=== PATIENT | male | born 1955 | race American Indian/Alaskan Native ===

== ENCOUNTER 2020-07-10 21:29 | Observation (INO) | payer OTHER ==
[2020-07-10 22:17] LABS: Hematocrit 23.1 % (35.5-45.6); Hemoglobin 7.1 gm/dl (11.8-15.2); Mean Corpuscular HGB Conc 31 % (32-34); Mean Corpuscular Volume 91 fl (84-94); Red Blood Count 2.54 M/mm3 (3.65-5.03)
[2020-07-10 22:21] LABS: Platelet Count 41 K/mm3 (140-440); Red Cell Distribution Width 21.8 % (13.2-15.2)
[2020-07-10 22:35] LABS: Alanine Aminotransferase 14 units/L (7-56); Albumin 3.8 g/dL (3.9-5); BUN/Creatinine Ratio 14; Blood Urea Nitrogen 11 mg/dL (9-20); Calcium 8.7 mg/dL (8.4-10.2); Hemolysis Index 3
[2020-07-10 23:18] LABS: Anisocytosis 1+; Band Neutrophils # (Manual) 1.2 K/mm3; Large Platelets Rare; Myelocytes # (Manual) 0.4 K/mm3; Total Cells Counted 100
[2020-07-10 23:19] LABS: Tear Drop Cells Rare
[2020-07-10 23:20] LABS: Ovalocytes Rare
[2020-07-10 23:21] LABS: Platelet Estimate Consistent w Auto
--- NOTE | 2020-07-11 01:34 | Emergency Department Report ---
ED General Adult HPI - General Chief complaint: Recheck/Abnormal Lab/Rx Stated complaint: ABNORMAL LABS Time Seen by Provider: 07/11/20 00:49 Source: patient Mode of arrival: Ambulatory Limitations: No Limitations - History of Present Illness Initial comments: Patient is a 64-year-old F [place]ian male with past medical history hypertension CVA and diet-controlled diabetes who is presenting with abnormal labs from his primary care provider. Patient's had several month decline in his mental health status. May 2020 the patient had a CVA with some residual dysarthria. Patient started on aspirin therapy at that time. Patient was not placed on b lood thinners however in early June 2020 the patient was noted to have a low hemoglobin. Patient had to have a blood transfusion. Must been some abnormality but the patient's laboratory studies at that time since that hematology consult was placed however the patient left AMA before given being g iven a diagnosis. Patient had a follow-up with his primary care physician Dr. CRISTIN luna several days ago and was called to come to the emergency department today. Patient has a hemoglobin of 7.1. He denies chest pain or shortness of breath but his states that he has been very weak and fatigued at home and had a syncopal episode 2 days ago and was unresponsive briefly. By time paramedics arrived patient was alert and oriented and refused transport to the hospital. Patient denies any dark tarry stools and states that his Hemoccult was checked several days ago and was negative. - Related Data Allergies Allergy/AdvReac Type Severity Reaction Status Date / Time No Known Allergies Allergy Unverified 07/10/20 21:33 ED Review of Systems ROS: Stated complaint: ABNORMAL LABS Other details as noted in HPI Comment: All other systems reviewed and negative ED Past Medical Hx - Past Medical History Previous Medical History?: Yes Hx CVA: Yes Additional medical history: BLOOD CLOT - Surgical History Past Surgical History?: Yes Additional Surgical History: BACK SURGERY 1997 - Social History Smoking Status: Never Smoker Substance Use Type: None ED Physical Exam - General Limitations: No Limitations General appearance: alert, in no apparent distress, other (Pale) - Head Head exam: Present: atraumatic, normocephalic - Eye Eye exam: Present: normal appearance - ENT ENT exam: Present: mucous membranes moist - Neck Neck exam: Present: normal inspection - Respiratory Respiratory exam: Present: normal lung sounds bilaterally. Absent: respiratory distress, wheezes, rales, rhonchi - Cardiovascular Cardiovascular Exam: Present: regular rate, normal rhythm, normal heart sounds. Absent: systolic murmur, diastolic murmur, rubs, gallop - GI/Abdominal GI/Abdominal exam: Present: soft, normal bowel sounds. Absent: distended, tenderness, guarding, rebound - Rectal Rectal exam: Present: heme (-) stool - Extremities Exam Extremities exam: Present: normal inspection - Back Exam Back exam: Present: normal inspection - Neurological Exam Neurological exam: Present: alert, oriented X3 - Psychiatric Psychiatric exam: Present: normal affect, normal mood - Skin Skin exam: Present: warm, dry, intact, normal color. Absent: rash ED Course Vital Signs 07/10/20 21:37 Temperature 98.1 F Pulse Rate 98 H Respiratory 16 Rate Blood Pressure 148/65 O2 Sat by Pulse 98 Oximetry ED Medical Decision Making - Lab Data Result diagrams: 07/10/20 21:55 07/10/20 21:55 Lab Results 07/10/20 07/10/20 07/10/20 Range/Units 21:55 21:55 21:55 WBC 13.1 H (4.5-11.0) K/mm3 RBC 2.54 L (3.65-5.03) M/mm3 Hgb 7.1 L (11.8-15.2) gm/dl Hct 23.1 L (35.5-45.6) % MCV 91 (84-94) fl MCH 28 (28-32) pg MCHC 31 L (32-34) % RDW 21.8 H (13.2-15.2) % Plt Count 41 L (140-440) K/mm3 Add Manual Diff Complete Total Counted 100 Seg Neuts % (Manual) 20.0 L (40.0-70.0) % Band Neutrophils % 9.0 % Lymphocytes % (Manual) 39.0 H (13.4-35.0) % Monocytes % (Manual) 2.0 (0.0-7.3) % Metamyelocytes % 20.0 % Myelocytes % 3.0 % Blast Cells % 7.0 % Nucleated RBC % 6.0 H (0.0-0.9) % Seg Neutrophils # Man 2.6 (1.8-7.7) K/mm3 Band Neutrophils # 1.2 K/mm3 Lymphocytes # (Manual) 5.1 (1.2-5.4) K/mm3 Abs React Lymphs (Man) 0.0 K/mm3 Monocytes # (Manual) 0.3 (0.0-0.8) K/mm3 Eosinophils # (Manual) 0.0 (0.0-0.4) K/mm3 Basophils # (Manual) 0.0 (0.0-0.1) K/mm3 Metamyelocytes # 2.6 K/mm3 Myelocytes # 0.4 K/mm3 Promyelocytes # 0.0 K/mm3 Blast Cells # 0.7 K/mm3 WBC Morphology Not Reportable Hypersegmented Neuts Not Reportable Hyposegmented Neuts Not Reportable Hypogranular Neuts Not Reportable Smudge Cells Not Reportable Toxic Granulation Not Reportable Toxic Vacuolation Not Reportable Dohle Bodies Not Reportable Pelger-Huet Anomaly Not Reportable [place] Rods Not Reportable Platelet Estimate Consistent w auto Clumped Platelets Not Reportable Plt Clumps, EDTA Not Reportable Large Platelets Rare Giant Platelets Not Reportable Platelet Satelliting Not Reportable Plt Morphology Comment Not Reportable RBC Morphology Not Reportable Dimorphic RBCs Not Reportable Polychromasia Not Reportable Hypochromasia Not Reportable Poikilocytosis Not Reportable Anisocytosis 1+ Microcytosis Not Reportable Macrocytosis Not Reportable Spherocytes Not Reportable Pappenheimer Bodies Not Reportable Sickle Cells Not Reportable Target Cells Not Reportable Tear Drop Cells Rare Ovalocytes Rare Helmet Cells Not Reportable [place] Bodies Not Reportable [place] Rings Not Reportable [place] Cells Not Reportable Bite Cells Not Reportable Crenated Cell Not Reportable Elliptocytes Not Reportable Acanthocytes (Spur) Not Reportable Rouleaux Not Reportable Hemoglobin C Crystals Not Reportable Schistocytes Not Reportable Malaria parasites Not Reportable Brice Bodies Not Reportable Hem Pathologist Commnt Sent to pathology Sodium 137 (137-145) mmol/L Potassium 3.7 (3.6-5.0) mmol/L Chloride 102.1 (98-107) mmol/L Carbon Dioxide 25 (22-30) mmol/L Anion Gap 14 mmol/L BUN 11 (9-20) mg/dL Creatinine 0.8 (0.8-1.3) mg/dL Estimated GFR > 60 ml/min BUN/Creatinine Ratio 14 % Glucose 98 (75-100) mg/dL Calcium 8.7 (8.4-10.2) mg/dL Total Bilirubin 0.70 (0.1-1.2) mg/dL AST 25 (5-40) units/L ALT 14 (7-56) units/L Alkaline Phosphatase 103 (35-129) units/L Total Protein 7.5 (6.3-8.2) g/dL Albumin 3.8 L (3.9-5) g/dL Albumin/Globulin Ratio 1.0 % Blood Type B POSITIVE Antibody Screen Negative - Medical Decision Making Patient noted to have hemoglobin 7.1 and will receive 1 unit of packed red blood cells since the patient has a history of diabetes hypertension and was symptomatic. Patient also has a platelet count of 41 this will continue to be monitored. Patient will be admitted to the hospitalist service. We do have a cargo service agent who can see the patient via telemedicine Dr. Sanders. Critical Care Time: Yes (30) Critical care attestation.: If time is entered above; I have spent that time in minutes in the direct care of this critically ill patient, excluding procedure time. ED Disposition Clinical Impression: Symptomatic anemia, Thrombocytopenia, Syncope Disposition: OP ADMIT IP TO THIS HOSP Is pt being admited?: Yes Does the pt Need Aspirin: No Condition: Stable Instructions: Syncope (ED) Referrals: DR AALIYAH [Other] - 3-5 Days Time of Disposition: 01:35
[2020-07-11] MEDS ORDERED: SODIUM CHLORIDE 0.9% 500 ML 500 ML IV ONE (01:35)
--- NOTE | 2020-07-11 02:40 | History and Physical Report ---
History of Present Illness Date of examination: 07/11/20 Date of admission: 07/11/20 01:35 Chief complaint: Chief complaint syncopal attack, other complaint include low hemoglobin and platelet counts History of present illness: History of presenting illness, patient is a 54-year-old male who was noted to have abnormal hemoglobin level sometime this month of June 2020 and had blood transfusion. Patient had hematology consult but never stayed to complete the consult and left the hospital where he was transfused AGAINST MEDICAL ADVICE. Patient had a syncopal episode about 2 days ago and was seen by the primary care doctor who advised patient to come to the hospital there was no history of chest pain, fever, dizziness, shortness of breath prior to the syncopal attack. Patient was evaluated in this emergency room and found to have low hemoglobin of 7.1 and low platelet count of 41,000. Past History Past Medical History: diabetes, hypertension, stroke, other (GOUT, BLOOD CLOT) Past Surgical History: Other (BACK SURGERY) Social history: no significant social history Family history: no significant family history Medications and Allergies Allergies Allergy/AdvReac Type Severity Reaction Status Date / Time No Known Allergies Allergy Verified 07/11/20 01:41 Active Meds: Active Medications Sodium Chloride (Nacl 0.9% 500 Ml) 500 mls @ 0 mls/hr IV ONCE ONE Stop: 07/11/20 01:36 Review of Systems Constitutional: no weight gain, no fever, no chills, no sweats, no night sweats, no fatigue, no weakness, no malaise, no lethargy Eyes: bilateral: other (NO BILATERAL EYE SYMPTOMS) Ears, nose, mouth and throat: no ear pain Cardiovascular: no chest pain, no palpitations, no syncope, no lightheadedness, no shortness of breath Respiratory: no cough, no hemoptysis, no shortness of breath, no dyspnea on exertion, no congestion, no wheezing Gastrointestinal: no nausea, no vomiting, no diarrhea, no constipation, no hematemesis, no coffee ground emesis, no melena, no hematochezia, no loss of appetite, no early satiety, no heartburn, no indigestion, no belching, no dyspepsia/bloating Genitourinary Male: no dysuria, no hematuria, no flank pain Rectal: no pain Musculoskeletal: no neck stiffness, no neck pain, no low back pain, no shooting leg pain, no myalgias Integumentary: no rash, no redness Neurological: syncope, no paralysis, no weakness, no parathesias, no numbness, no tingling, no seizures, no tremors, no ataxia, no vertigo, no headaches, no migraines, no convulsions, no change in mentation, no confusion Psychiatric: no anxiety, no depression Endocrine: no polydipsia, no polyuria, no nocturia, no excessive sweating Hematologic/Lymphatic: no easy bruising, no easy bleeding, no lymphedema Allergic/Immunologic: no urticaria, no persistent infections, no gluten intolerance Exam - Constitutional Vitals: Temp Pulse Resp BP Pulse Ox 98.1 F 98 H 16 148/65 98 07/10/20 21:37 07/10/20 21:37 07/10/20 21:37 07/10/20 21:37 07/10/20 21:37 General appearance: Present: no acute distress - EENT Eyes: Present: PERRL, EOM intact ENT: hearing intact, clear oral mucosa - Neck Neck: Present: supple, normal ROM - Respiratory Respiratory effort: normal - Cardiovascular Rhythm: regular Heart Sounds: Present: S1 & S2. Absent: gallop, systolic murmur, diastolic murmur, click - Extremities Extremities: no ischemia, No edema - Abdominal General gastrointestinal: Present: soft, non-tender, non-distended, normal bowel sounds. Absent: tender, distended, rigid Male genitourinary: Present: deferred - Rectal Rectal Exam: deferred - Integumentary Integumentary: Present: clear, warm, dry. Absent: erythema, jaundice - Musculoskeletal Musculoskeletal: generalized weakness - Psychiatric Psychiatric: appropriate mood/affect HEART Score - HEART Score Risk factors: 1-2 risk factors Troponin: < normal limit - Critical Actions Critical Actions: 0-3 pts:0.9-1.7%risk of adverse cardiac event.Candidate for discharge Results - Labs CBC & Chem 7: 07/10/20 21:55 07/10/20 21:55 Labs: Laboratory Last Values WBC 13.1 K/mm3 (4.5-11.0) H 07/10/20 21:55 RBC 2.54 M/mm3 (3.65-5.03) L 07/10/20 21:55 Hgb 7.1 gm/dl (11.8-15.2) L 07/10/20 21:55 Hct 23.1 % (35.5-45.6) L 07/10/20 21:55 MCV 91 fl (84-94) 07/10/20 21:55 MCH 28 pg (28-32) 07/10/20 21:55 MCHC 31 % (32-34) L 07/10/20 21:55 RDW 21.8 % (13.2-15.2) H 07/10/20 21:55 Plt Count 41 K/mm3 (140-440) L 07/10/20 21:55 Add Manual Diff Complete 07/10/20 21:55 Total Counted 100 07/10/20 21:55 Seg Neuts % (Manual) 20.0 % (40.0-70.0) L 07/10/20 21:55 Band Neutrophils % 9.0 % 07/10/20 21:55 Lymphocytes % (Manual) 39.0 % (13.4-35.0) H 07/10/20 21:55 Monocytes % (Manual) 2.0 % (0.0-7.3) 07/10/20 21:55 Metamyelocytes % 20.0 % 07/10/20 21:55 Myelocytes % 3.0 % 07/10/20 21:55 Blast Cells % 7.0 % 07/10/20 21:55 Nucleated RBC % 6.0 % (0.0-0.9) H 07/10/20 21:55 Seg Neutrophils # Man 2.6 K/mm3 (1.8-7.7) 07/10/20 21:55 Band Neutrophils # 1.2 K/mm3 07/10/20 21:55 Lymphocytes # (Manual) 5.1 K/mm3 (1.2-5.4) 07/10/20 21:55 Abs React Lymphs (Man) 0.0 K/mm3 07/10/20 21:55 Monocytes # (Manual) 0.3 K/mm3 (0.0-0.8) 07/10/20 21:55 Eosinophils # (Manual) 0.0 K/mm3 (0.0-0.4) 07/10/20 21:55 Basophils # (Manual) 0.0 K/mm3 (0.0-0.1) 07/10/20 21:55 Metamyelocytes # 2.6 K/mm3 07/10/20 21:55 Myelocytes # 0.4 K/mm3 07/10/20 21:55 Promyelocytes # 0.0 K/mm3 07/10/20 21:55 Blast Cells # 0.7 K/mm3 07/10/20 21:55 WBC Morphology Not Reportable 07/10/20 21:55 Hypersegmented Neuts Not Reportable 07/10/20 21:55 Hyposegmented Neuts Not Reportable 07/10/20 21:55 Hypogranular Neuts Not Reportable 07/10/20 21:55 Smudge Cells Not Reportable 07/10/20 21:55 Toxic Granulation Not Reportable 07/10/20 21:55 Toxic Vacuolation Not Reportable 07/10/20 21:55 Dohle Bodies Not Reportable 07/10/20 21:55 Pelger-Huet Anomaly Not Reportable 07/10/20 21:55 Clayton Rods Not Reportable 07/10/20 21:55 Platelet Estimate Consistent w auto 07/10/20 21:55 Clumped Platelets Not Reportable 07/10/20 21:55 Plt Clumps, EDTA Not Reportable 07/10/20 21:55 Large Platelets Rare 07/10/20 21:55 Giant Platelets Not Reportable 07/10/20 21:55 Platelet Satelliting Not Reportable 07/10/20 21:55 Plt Morphology Comment Not Reportable 07/10/20 21:55 RBC Morphology Not Reportable 07/10/20 21:55 Dimorphic RBCs Not Reportable 07/10/20 21:55 Polychromasia Not Reportable 07/10/20 21:55 Hypochromasia Not Reportable 07/10/20 21:55 Poikilocytosis Not Reportable 07/10/20 21:55 Anisocytosis 1+ 07/10/20 21:55 Microcytosis Not Reportable 07/10/20 21:55 Macrocytosis Not Reportable 07/10/20 21:55 Spherocytes Not Reportable 07/10/20 21:55 Pappenheimer Bodies Not Reportable 07/10/20 21:55 Sickle Cells Not Reportable 07/10/20 21:55 Target Cells Not Reportable 07/10/20 21:55 Tear Drop Cells Rare 07/10/20 21:55 Ovalocytes Rare 07/10/20 21:55 Helmet Cells Not Reportable 07/10/20 21:55 Holliday-[place] Bodies Not Reportable 07/10/20 21:55 [place] Rings Not Reportable 07/10/20 21:55 Yeyo Cells Not Reportable 07/10/20 21:55 Bite Cells Not Reportable 07/10/20 21:55 Crenated Cell Not Reportable 07/10/20 21:55 Elliptocytes Not Reportable 07/10/20 21:55 Acanthocytes (Spur) Not Reportable 07/10/20 21:55 Rouleaux Not Reportable 07/10/20 21:55 Hemoglobin C Crystals Not Reportable 07/10/20 21:55 Schistocytes Not Reportable 07/10/20 21:55 Malaria parasites Not Reportable 07/10/20 21:55 Brice Bodies Not Reportable 07/10/20 21:55 Hem Pathologist Commnt Sent to pathology 07/10/20 21:55 Sodium 137 mmol/L (137-145) 07/10/20 21:55 Potassium 3.7 mmol/L (3.6-5.0) 07/10/20 21:55 Chloride 102.1 mmol/L (98-107) 07/10/20 21:55 Carbon Dioxide 25 mmol/L (22-30) 07/10/20 21:55 Anion Gap 14 mmol/L 07/10/20 21:55 BUN 11 mg/dL (9-20) 07/10/20 21:55 Creatinine 0.8 mg/dL (0.8-1.3) 07/10/20 21:55 Estimated GFR > 60 ml/min 07/10/20 21:55 BUN/Creatinine Ratio 14 % 07/10/20 21:55 Glucose 98 mg/dL (75-100) 07/10/20 21:55 Calcium 8.7 mg/dL (8.4-10.2) 07/10/20 21:55 Total Bilirubin 0.70 mg/dL (0.1-1.2) 07/10/20 21:55 AST 25 units/L (5-40) 07/10/20 21:55 ALT 14 units/L (7-56) 07/10/20 21:55 Alkaline Phosphatase 103 units/L (35-129) 07/10/20 21:55 Total Protein 7.5 g/dL (6.3-8.2) 07/10/20 21:55 Albumin 3.8 g/dL (3.9-5) L 07/10/20 21:55 Albumin/Globulin Ratio 1.0 % 07/10/20 21:55 Blood Type B POSITIVE 07/10/20 21:55 Antibody Screen Negative 07/10/20 21:55 Crossmatch See Detail 07/10/20 21:55 Assessment and Plan - Patient Problems (1) Anemia Current Visit: Yes Status: Acute Plan to address problem: 1. SERIAL HEMOGLOBIN AND HEMATOCRIT 2. HEMATOLOGY CONSULT 3. POST TRANSFUSION HEMOGLOBIN ANALYSIS 4. HEMAOCCULT STOOL TESTING (2) Syncope Current Visit: Yes Status: Acute Plan to address problem: 1. SERIAL CARDIAC ENZYMES 2. 2 D ECHOCARDIOGRAM 3. BILATERAL CAROTID DOPPLER ULTRASOUND (3) Thrombocytopenia Current Visit: Yes Status: Acute Plan to address problem: 1. HEMATOLOGY CONSULT
[2020-07-11] MEDS ORDERED: SODIUM CHLORIDE 0.9% 250ML 250 ML ONE (04:03)
--- NOTE | 2020-07-11 10:56 | Hem/Onc Consultation ---
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3) 07/10/20 21:55 Metamyelocytes % 20.0 % 07/10/20 21:55 Myelocytes % 3.0 % 07/10/20 21:55 Blast Cells % 7.0 % 07/10/20 21:55 Creatinine 0.8 mg/dL (0.8-1.3) 07/10/20 21:55 Crossmatch See Detail 07/10/20 21:55 Past History Past Medical History: diabetes, hypertension, stroke, other (GOUT, BLOOD CLOT) Past Surgical History: Other (BACK SURGERY) Social history: no significant social history Family history: no significant family history Medications and Allergies Allergies Allergy/AdvReac Type Severity Reaction Status Date / Time No Known Allergies Allergy Verified 07/11/20 01:41 Active Meds: Active Medications Sodium Chloride (Nacl 0.9% 500 Ml) 500 mls @ 0 mls/hr IV ONCE ONE Stop: 07/11/20 01:36 Exam - Constitutional Vitals: Last Vital Signs Temp 97.6 F 07/11/20 06:58 Pulse 90 07/11/20 06:58 Resp 18 07/11/20 06:58 BP 147/86 07/11/20 06:58 Pulse Ox 98 07/11/20 06:58 Results - Labs lab Results: Laboratory Results - last 24 hr 07/10/20 07/10/20 07/10/20 21:55 21:55 21:55 WBC 13.1 H RBC 2.54 L Hgb 7.1 L Hct 23.1 L MCV 91 MCH 28 MCHC 31 L RDW 21.8 H Plt Count 41 L Add Manual Diff Complete Total Counted 100 Seg Neuts % (Manual) 20.0 L Band Neutrophils % 9.0 Lymphocytes % (Manual) 39.0 H Monocytes % (Manual) 2.0 Metamyelocytes % 20.0 Myelocytes % 3.0 Blast Cells % 7.0 Nucleated RBC % 6.0 H Seg Neutrophils # Man 2.6 Band Neutrophils # 1.2 Lymphocytes # (Manual) 5.1 Abs React Lymphs (Man) 0.0 Monocytes # (Manual) 0.3 Eosinophils # (Manual) 0.0 Basophils # (Manual) 0.0 Metamyelocytes # 2.6 Myelocytes # 0.4 Promyelocytes # 0.0 Blast Cells # 0.7 WBC Morphology Not Reportable Hypersegmented Neuts Not Reportable Hyposegmented Neuts Not Reportable Hypogranular Neuts Not Reportable Smudge Cells Not Reportable Toxic Granulation Not Reportable Toxic Vacuolation Not Reportable Dohle Bodies Not Reportable Pelger-Huet Anomaly Not Reportable [place] Rods Not Reportable Platelet Estimate Consistent w auto Clumped Platelets Not Reportable Plt Clumps, EDTA Not Reportable Large Platelets Rare Giant Platelets Not Reportable Platelet Satelliting Not Reportable Plt Morphology Comment Not Reportable RBC Morphology Not Reportable Dimorphic RBCs Not Reportable Polychromasia Not Reportable Hypochromasia Not Reportable Poikilocytosis Not Reportable Anisocytosis 1+ Microcytosis Not Reportable Macrocytosis Not Reportable Spherocytes Not Reportable Pappenheimer Bodies Not Reportable Sickle Cells Not Reportable Target Cells Not Reportable Tear Drop Cells Rare Ovalocytes Rare Helmet Cells Not Reportable Holliday[place] Bodies Not Reportable [place] Rings Not Reportable Yeyo Cells Not Reportable Bite Cells Not Reportable Crenated Cell Not Reportable Elliptocytes Not Reportable Acanthocytes (Spur) Not Reportable Rouleaux Not Reportable Hemoglobin C Crystals Not Reportable Schistocytes Not Reportable Malaria parasites Not Reportable Brice Bodies Not Reportable Hem Pathologist Commnt Sent to pathology Sodium 137 Potassium 3.7 Chloride 102.1 Carbon Dioxide 25 Anion Gap 14 BUN 11 Creatinine 0.8 Estimated GFR > 60 BUN/Creatinine Ratio 14 Glucose 98 Calcium 8.7 Total Bilirubin 0.70 AST 25 ALT 14 Alkaline Phosphatase 103 Total Protein 7.5 Albumin 3.8 L Albumin/Globulin Ratio 1.0 Blood Type B POSITIVE Antibody Screen Negative Crossmatch See Detail
--- NOTE | 2020-07-11 10:58 | Event Note ---
Date: 07/11/20 Patient seen and examined H&P reviewed Lab results reviewed Patient states that he wants to go home now that he got his blood transfusion I had a long discussion with the patient to wait until hematology evaluation Consult placed with mission planner Dr. Sanders Patient otherwise offers no specific complaints Monitor H&H
[2020-07-11 11:36] LABS: Creatine Kinase MB 2.5 ng/mL (0.0-4.0)
[2020-07-11 11:55] LABS: Hematocrit 24.9 % (35.5-45.6); Mean Corpuscular HGB Conc 32 % (32-34); Mean Corpuscular Volume 89 fl (84-94); Red Blood Count 2.81 M/mm3 (3.65-5.03); Red Cell Distribution Width 19.6 % (13.2-15.2)
[2020-07-11 12:05] LABS: Platelet Count 32 K/mm3 (140-440)
[2020-07-11 13:38] LABS: Total Cells Counted 100
[2020-07-11 13:40] LABS: Platelet Estimate Consistent w Auto; Target Cells 1+
[2020-07-11 13:41] LABS: Ovalocytes Few
[2020-07-11] MEDS ORDERED: ALUM-MAG HYDROXIDE-SIMETHICONE 200-200-20MG/5ML ORAL LIQD 30 ML PO PRN (17:40)
[2020-07-11 19:21] LABS: Hematocrit 26.5 % (35.5-45.6); Hemoglobin 8.5 gm/dl (11.8-15.2)
[2020-07-11] MEDS: FAMOTIDINE 20 MG TAB PO SCH (23:54)
[2020-07-12 06:31] LABS: INR 1.14 (0.87-1.13); Partial Thromboplastin Time 28.2 Sec. (24.2-36.6)
[2020-07-12 06:32] LABS: Hematocrit 27.4 % (35.5-45.6); Hemoglobin 8.7 gm/dl (11.8-15.2); Mean Corpuscular HGB Conc 32 % (32-34); Mean Corpuscular Volume 89 fl (84-94); Red Blood Count 3.09 M/mm3 (3.65-5.03)
[2020-07-12 06:34] LABS: Red Cell Distribution Width 20.2 % (13.2-15.2)
[2020-07-12 09:13] LABS: Total Cells Counted 100
[2020-07-12 09:14] LABS: Anisocytosis 1+
[2020-07-12 09:19] LABS: Platelet Estimate Consistent w Auto; Schistocytes Rare; Tear Drop Cells Rare
--- NOTE | 2020-07-12 10:18 | Hem/Onc Progress Note ---
Subjective Interval history: heme onc data review 64yo AA man with h/o stroke per notes now eval for confusion, abn labn testing, persistent anemia anticoag recently stopped because of anemia-->needed RBC transfusion (details unavailable) now persistent anemia and low plt count DATA REVIEWED BELOW LDH 521 IMP: heme malignancy suspected, possibly acute leukemia or lymphoma PLAN/REC: try for C/A/P CT he needs a bone marrow biopsy and intervention if he is not willing to stay then he will need outpt heme/onc f/u sidney Active Medications Al Hydrox/Mg Hydrox/Simethicone (Alum-Mag Hydroxide-Simethicone 892-019-51jy/5ml Oral Liqd 30 Ml) 15 ml PO Q4H PRN PRN Reason: Indigestion Last Admin: 07/11/20 18:17 Dose: 15 ml Documented by: Amlodipine Besylate (Amlodipine 5 Mg Tab) 5 mg PO QDAY CORDELIA Famotidine (Famotidine 20 Mg Tab) 20 mg PO BID CORDELIA Last Admin: 07/11/20 23:54 Dose: 20 mg Documented by: Vital Signs Temp Pulse Resp BP Pulse Ox 98.0 F 89 20 161/86 99 07/12/20 04:14 07/12/20 04:14 07/12/20 04:14 07/12/20 04:14 07/12/20 04:14 Temperature -Last 24 Hours Temperature 98.0 F Temperature 98.0 F Temperature 98.3 F Temperature 98.2 F Laboratory Last Values WBC 13.4 K/mm3 (4.5-11.0) H 07/12/20 05:36 Hgb 8.7 gm/dl (11.8-15.2) L 07/12/20 05:36 Hct 27.4 % (35.5-45.6) L 07/12/20 05:36 Plt Count 32 K/mm3 (140-440) L 07/11/20 11:00 Seg Neuts % (Manual) 45.0 % (40.0-70.0) 07/12/20 05:36 Band Neutrophils % 9.0 % 07/10/20 21:55 Lymphocytes % (Manual) 52.0 % (13.4-35.0) H 07/12/20 05:36 Reactive Lymphs % (Man) 3.0 % 07/11/20 11:00 Monocytes % (Manual) 3.0 % (0.0-7.3) 07/12/20 05:36 Eosinophils % (Manual) 2.0 % (0.0-4.3) 07/11/20 11:00 Basophils % (Manual) 3.0 % (0.0-1.8) H 07/11/20 11:00 Metamyelocytes % 4.0 % 07/11/20 11:00 Myelocytes % 3.0 % 07/10/20 21:55 Blast Cells % 7.0 % 07/10/20 21:55 Lactate Dehydrogenase 521 units/L (91-180) H 07/11/20 11:58 Crossmatch See Detail 07/10/20 21:55 Objective - Constitutional Vitals: Last Vital Signs Temp 98.0 F 07/12/20 04:14 Pulse 89 07/12/20 04:14 Resp 20 07/12/20 04:14 BP 161/86 07/12/20 04:14 Pulse Ox 99 07/12/20 04:14 - Labs Lab Results: Laboratory Results - last 24 hr 07/10/20 07/11/20 07/11/20 21:55 11:00 11:00 WBC 13.5 H RBC 2.81 L Hgb 8.0 L Hct 24.9 L MCV 89 MCH 29 MCHC 32 RDW 19.6 H Plt Count 32 L [place] % (Auto) [employer] Add Manual Diff Complete Total Counted 100 Seg Neuts % (Manual) 53.0 Lymphocytes % (Manual) 28.0 Reactive Lymphs % (Man) 3.0 Monocytes % (Manual) 7.0 Eosinophils % (Manual) 2.0 Basophils % (Manual) 3.0 H Metamyelocytes % 4.0 Nucleated RBC % 5.0 H Seg Neutrophils # Man 7.2 Band Neutrophils # 0.0 Lymphocytes # (Manual) 3.8 Abs React Lymphs (Man) 0.4 Monocytes # (Manual) 0.9 H Eosinophils # (Manual) 0.3 Basophils # (Manual) 0.4 H Metamyelocytes # 0.5 Myelocytes # 0.0 Promyelocytes # 0.0 Blast Cells # 0.0 WBC Morphology Not Reportable Hypersegmented Neuts Not Reportable Hyposegmented Neuts Not Reportable Hypogranular Neuts Not Reportable Smudge Cells Not Reportable Toxic Granulation Not Reportable Toxic Vacuolation Not Reportable Dohle Bodies Not Reportable Pelger-Huet Anomaly Not Reportable [place] Rods Not Reportable Platelet Estimate Consistent w auto Clumped Platelets Not Reportable Plt Clumps, EDTA Not Reportable Large Platelets Not Reportable Giant Platelets Not Reportable Platelet Satelliting Not Reportable Plt Morphology Comment Not Reportable RBC Morphology Not Reportable Dimorphic RBCs Not Reportable Polychromasia Few Hypochromasia Not Reportable Poikilocytosis Not Reportable Anisocytosis Not Reportable Microcytosis Not Reportable Macrocytosis Not Reportable Spherocytes Not Reportable Pappenheimer Bodies Not Reportable Sickle Cells Not Reportable Target Cells 1+ Tear Drop Cells Not Reportable Ovalocytes Few Helmet Cells Not Reportable Holliday-Eola Bodies Not Reportable Zeigler Rings Not Reportable Yeyo Cells Not Reportable Bite Cells Not Reportable Crenated Cell Not Reportable Elliptocytes Few Acanthocytes (Spur) Not Reportable Rouleaux Not Reportable Hemoglobin C Crystals Not Reportable Schistocytes Not Reportable Malaria parasites Not Reportable Brice Bodies Not Reportable Hem Pathologist Commnt No No PT INR APTT Fibrinogen Uric Acid Lactate Dehydrogenase Total Creatine Kinase 134 CK-MB (CK-2) 2.5 CK-MB (CK-2) Rel Index 1.8 Troponin T 0.022 07/11/20 07/11/20 07/11/20 11:00 11:58 11:58 WBC RBC Hgb Hct MCV MCH MCHC RDW Plt Count [place] % (Auto) Add Manual Diff Total Counted Seg Neuts % (Manual) Lymphocytes % (Manual) Reactive Lymphs % (Man) Monocytes % (Manual) Eosinophils % (Manual) Basophils % (Manual) Metamyelocytes % Nucleated RBC % Seg Neutrophils # Man Band Neutrophils # Lymphocytes # (Manual) Abs React Lymphs (Man) Monocytes # (Manual) Eosinophils # (Manual) Basophils # (Manual) Metamyelocytes # Myelocytes # Promyelocytes # Blast Cells # WBC Morphology TNR Hypersegmented Neuts Hyposegmented Neuts Hypogranular Neuts Smudge Cells Toxic Granulation Toxic Vacuolation Dohle Bodies Pelger-Huet Anomaly [place] Rods Platelet Estimate Clumped Platelets Plt Clumps, EDTA Large Platelets Giant Platelets Platelet Satelliting Plt Morphology Comment RBC Morphology Dimorphic RBCs Polychromasia Hypochromasia Poikilocytosis Anisocytosis Microcytosis Macrocytosis Spherocytes Pappenheimer Bodies Sickle Cells Target Cells Tear Drop Cells Ovalocytes Helmet Cells Holliday-Eola Bodies Zeigler Rings [place] Cells Bite Cells Crenated Cell Elliptocytes Acanthocytes (Spur) Rouleaux Hemoglobin C Crystals Schistocytes Malaria parasites Brice Bodies Hem Pathologist Commnt PT INR APTT Fibrinogen 328 Uric Acid 5.0 Lactate Dehydrogenase 521 H Total Creatine Kinase CK-MB (CK-2) CK-MB (CK-2) Rel Index Troponin T 07/11/20 07/12/20 07/12/20 19:09 05:36 05:36 WBC 13.4 H RBC 3.09 L Hgb 8.5 L 8.7 L Hct 26.5 L 27.4 L MCV 89 MCH 28 MCHC 32 RDW 20.2 H Plt Count [place] % (Auto) Add Manual Diff Complete Total Counted 100 Seg Neuts % (Manual) 45.0 Lymphocytes % (Manual) 52.0 H Reactive Lymphs % (Man) Monocytes % (Manual) 3.0 Eosinophils % (Manual) Basophils % (Manual) Metamyelocytes % Nucleated RBC % 7.0 H Seg Neutrophils # Man 6.0 Band Neutrophils # 0.0 Lymphocytes # (Manual) 7.0 H Abs React Lymphs (Man) 0.0 Monocytes # (Manual) 0.4 Eosinophils # (Manual) 0.0 Basophils # (Manual) 0.0 Metamyelocytes # 0.0 Myelocytes # 0.0 Promyelocytes # 0.0 Blast Cells # 0.0 WBC Morphology Not Reportable Hypersegmented Neuts Not Reportable Hyposegmented Neuts Not Reportable Hypogranular Neuts Not Reportable Smudge Cells Not Reportable Toxic Granulation Not Reportable Toxic Vacuolation Not Reportable Dohle Bodies Not Reportable Pelger-Huet Anomaly Not Reportable Clayton Rods Not Reportable Platelet Estimate Consistent w auto Clumped Platelets Not Reportable Plt Clumps, EDTA Not Reportable Large Platelets Not Reportable Giant Platelets Not Reportable Platelet Satelliting Not Reportable Plt Morphology Comment Not Reportable RBC Morphology Not Reportable Dimorphic RBCs Not Reportable Polychromasia Not Reportable Hypochromasia Not Reportable Poikilocytosis Not Reportable Anisocytosis 1+ Microcytosis Not Reportable Macrocytosis Not Reportable Spherocytes Not Reportable Pappenheimer Bodies Not Reportable Sickle Cells Not Reportable Target Cells Not Reportable Tear Drop Cells Rare Ovalocytes Not Reportable Helmet Cells Not Reportable Holliday-Eola Bodies Not Reportable Zeigler Rings Not Reportable Yeyo Cells Not Reportable Bite Cells Not Reportable Crenated Cell Not Reportable Elliptocytes Not Reportable Acanthocytes (Spur) Not Reportable Rouleaux Not Reportable Hemoglobin C Crystals Not Reportable Schistocytes Rare Malaria parasites Not Reportable Brice Bodies Not Reportable Hem Pathologist Commnt No PT 14.5 INR 1.14 H APTT 28.2 Fibrinogen Uric Acid Lactate Dehydrogenase Total Creatine Kinase CK-MB (CK-2) CK-MB (CK-2) Rel Index Troponin T Medications & Allergies - Medications Allergies/Adverse Reactions: Allergies No Known Allergies Allergy (Verified 07/11/20 01:41) Active Medications: Generic Name Dose Route Start Last Admin Trade Name Freq PRN Reason Stop Dose Admin Al Hydrox/Mg Hydrox/Simethicone 15 ml 07/11/20 17:40 07/11/20 18:17 Alum-Mag Hydroxide-Simethicone 520-527-16bo/5ml Oral Liqd 30 Ml PO 15 ml Q4H PRN Administration Indigestion Amlodipine Besylate 5 mg 07/12/20 07:38 Amlodipine 5 Mg Tab PO QDAY CORDELIA Famotidine 20 mg 07/11/20 22:00 07/11/20 23:54 Famotidine 20 Mg Tab PO 20 mg BID CORDELIA Administration
--- NOTE | 2020-07-12 10:55 | Progress Note ---
Subjective Date of service: 07/12/20 Interval history: History of present illness: History of presenting illness, patient is a 54-year-old male who was noted to have abnormal hemoglobin level sometime this month of June 2020 and had blood transfusion. Patient had hematology consult but never stayed to complete the consult and left the hospital where he was transfused AGAINST MEDICAL ADVICE. Patient had a syncopal episode about 2 days ago and was seen by the primary care doctor who advised patient to come to the hospital there was no history of chest pain, fever, dizziness, shortness of breath prior to the syncopal attack. Patient was evaluated in this emergency room and found to have low hemoglobin of 7.1 and low platelet count of 41,000. 07/12 patient is awake and alert and wants to go home. He offers no specific complaints and denies any dizziness, headache, fever or chills. I had a long discussion with patient's over the phone and at this time patient agrees to stay back for further work-up. Lab results reviewed. Hematology note reviewed. 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 Hematology consult note reviewed and appreciated Continue recommendations of hematology Awaiting CT of the chest abdomen and pelvis and bone marrow biopsy Leukocytosis Mild-with 52% lymphocytes on differential count Hypertension Patient vital signs reviewed He is not on any medication at home We will start the patient on amlodipine Objective - Constitutional Vitals: Vital Signs - 12hr 07/11/20 07/12/20 22:54 04:14 Temperature 98.0 F 98.0 F Pulse Rate 87 89 Respiratory 18 20 Rate Blood Pressure 180/90 161/86 O2 Sat by Pulse 97 99 Oximetry General appearance: Present: no acute distress, well-nourished - EENT Eyes: PERRL, EOM intact ENT: hearing intact, clear oral mucosa - Neck Neck: supple, normal ROM, no masses or JVD - Respiratory Respiratory effort: normal Respiratory: bilateral: CTA - Cardiovascular Rhythm: regular Heart Sounds: Present: S1 & S2 Extremities: No edema - Gastrointestinal General gastrointestinal: Present: soft, non-tender Rectal Exam: deferred - Genitourinary Male genitourinary: deferred - Integumentary Integumentary: clear - Musculoskeletal Musculoskeletal: strength equal bilaterally - Psychiatric Psychiatric: appropriate mood/affect - Labs CBC & Chem 7: 07/12/20 05:36 07/10/20 21:55 Labs: Abnormal lab results 07/11/20 07/11/20 07/11/20 Range/Units 11:00 11:58 19:09 WBC 13.5 H (4.5-11.0) K/mm3 RBC 2.81 L (3.65-5.03) M/mm3 Hgb 8.0 L 8.5 L (11.8-15.2) gm/dl Hct 24.9 L 26.5 L (35.5-45.6) % RDW 19.6 H (13.2-15.2) % Plt Count 32 L (140-440) K/mm3 Lymphocytes % (Manual) (13.4-35.0) % Basophils % (Manual) 3.0 H (0.0-1.8) % Nucleated RBC % 5.0 H (0.0-0.9) % Lymphocytes # (Manual) (1.2-5.4) K/mm3 Monocytes # (Manual) 0.9 H (0.0-0.8) K/mm3 Basophils # (Manual) 0.4 H (0.0-0.1) K/mm3 INR (0.87-1.13) Lactate Dehydrogenase 521 H (91-180) units/L 07/12/20 07/12/20 Range/Units 05:36 05:36 WBC 13.4 H (4.5-11.0) K/mm3 RBC 3.09 L (3.65-5.03) M/mm3 Hgb 8.7 L (11.8-15.2) gm/dl Hct 27.4 L (35.5-45.6) % RDW 20.2 H (13.2-15.2) % Plt Count (140-440) K/mm3 Lymphocytes % (Manual) 52.0 H (13.4-35.0) % Basophils % (Manual) (0.0-1.8) % Nucleated RBC % 7.0 H (0.0-0.9) % Lymphocytes # (Manual) 7.0 H (1.2-5.4) K/mm3 Monocytes # (Manual) (0.0-0.8) K/mm3 Basophils # (Manual) (0.0-0.1) K/mm3 INR 1.14 H (0.87-1.13) Lactate Dehydrogenase (91-180) units/L HEART Score - HEART Score Risk factors: 1-2 risk factors Troponin: Troponin T 0.022 ng/mL (0.00-0.029) 07/11/20 11:00 Troponin: < normal limit - Critical Actions Critical Actions: 0-3 pts:0.9-1.7%risk of adverse cardiac event.Candidate for discharge
[2020-07-12] MEDS ORDERED: methylPREDNISolone Sod Succinate 125 MG/2 ML INJ IV ONE (11:00)
[2020-07-12] MEDS: FAMOTIDINE 20 MG TAB PO SCH ×2 (11:22→21:36)
[2020-07-12] MEDS: amLODIPine 5 MG TAB PO SCH ×2 (11:22→11:30)
--- NOTE | 2020-07-12 13:10 | Cat Scan Report ---
CT CHEST, ABDOMEN, AND PELVIS WITH CONTRAST INDICATION / CLINICAL INFORMATION: Suspected malignancy. Syncope. TECHNIQUE: Axial CT images were obtained through the chest, abdomen, and pelvis after 100 mL Omnipaqu e [address] scans at this location are performed using CT dose reduction for LAY smith of automated exposure control. COMPARISON: None available. FINDINGS: HEART: No significant abnormality. CORONARY ARTERY CALCIFICATION: Mild. THORACIC AORTA: Mild atherosclerotic calcification without acute abnormality. MEDIASTINUM / FAUSTO: No mediastinal or hilar adenopathy. PLEURA: No pleural effusion. No pneumothorax. LUNGS: No acute air space or interstitial disease. No pulmonary mass or nodules. ADDITIONAL CHEST FINDINGS: Symmetric bilateral gynecomastia. LIVER: No significant abnormality. GALLBLADDER: No significant abnormality. BILE DUCTS: No significant abnormality. PANCREAS: No significant abnormality. SPLEEN: No significant abnormality. ADRENALS: No significant abnormality. RIGHT KIDNEY / URETER: No significant abnormality. LEFT KIDNEY / URETER: Tiny nonobstructing stone in the lower pole. No ureteral stone or hydronephrosi s. STOMACH and SMALL BOWEL: No significant abnormality. COLON: No significant abnormality. APPENDIX: No significant abnormality. PERITONEUM: No free fluid. No free air. No fluid collection. LYMPH NODES: No significant adenopathy. AORTA / ARTERIES: Moderate atherosclerosis. There is high-grade stenosis and occlusion of the left ex ternal iliac artery with reconstitution of the left common femoral artery by collaterals. IVC / VEINS: No significant abnormality. URINARY BLADDER: No significant abnormality. REPRODUCTIVE ORGANS: No significant abnormality. ADDITIONAL FINDINGS: None. SKELETAL SYSTEM: No significant abnormality. IMPRESSION: 1. No primary malignancy identified in the chest, abdomen, or pelvis. 2. No inflammatory process. 3. 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 Moderate diffuse atherosclerosis. 4. Symmetric bilateral gynecomastia. 5. Tiny nonobstructing left intrarenal stone. Signer Name: Lesli Garcia MD Signed: 07/12/2020 1:05 PM Workstation Name: [id number]
[2020-07-12 13:58] LABS: Pathology Differential Review YES
[2020-07-12 14:00] LABS: Platelet Count 35 K/mm3 (140-440)
--- NOTE | 2020-07-12 14:51 | Vascular Lab Report ---
DUPLEX DOPPLER ULTRASOUND CAROTID, BILATERAL INDICATION / CLINICAL INFORMATION: SYNCOPE. COMPARISON: None available. FINDINGS: RIGHT CAROTID: Occlusion beginning in the proximal right internal carotid artery. - PLAQUE ESTIMATE (%): Visible; no lumen. - CCA velocity: 37 cm/sec. - ICA peak systolic velocity: 0 cm/sec. - ICA/CCA PSV Ratio: Not applicable Right Vertebral Artery: Antegrade flow. LEFT CAROTID: Moderate plaque - PLAQUE ESTIMATE (%): 150 - CCA velocity: 71 cm/sec. - ICA peak systolic velocity: 182 cm/sec. - ICA/CCA PSV Ratio: 2.6 Left Vertebral Artery: No flow identified. IMPRESSION: 1. Right Internal Carotid Artery: Total occlusion. 2. Left Internal Carotid Artery: 50-69% diameter stenosis. 3. No flow identified in the left vertebral artery. Velocity criteria are extrapolated from diameter data as defined by the Society of Radiologists in Ul trasound Consensus Conference, Radiology 2003; 229;340-346. NO STENOSIS (NORMAL) - Plaque = none; ICA PSV < 125 cm/sec; ICA/CCA PSV Ratio < 2.0 <50% STENOSIS - Plaque < 50%; ICA PSV < 125 cm/sec; ICA/CCA PSV Ratio < 2.0 50-69% STENOSIS - Plaque > 50%; ICA PSV = 125-230 cm/sec; ICA/CCA PSV Ratio = 2.0-4.0 >70% BUT <100% STENOSIS - Plaque > 50%; ICA PSV > 230 cm/sec; ICA/CCA PSV Ratio > 4.0 NEAR OCCLUSION - Plaque = visible lumen; ICA PSV = high/low/none; ICA/CCA PSV Ratio = variable TOTAL OCCLUSION - Plaque = no lumen; ICA PSV = none; ICA/CCA PSV Ratio = N/A Signer Name: Lesli Garcia MD Signed: 07/12/2020 2:46 PM Workstation Name: [id number]
[2020-07-12] MEDS: ACETAMINOPHEN 325 MG TAB PO PRN ×2 (15:00→21:36)
[2020-07-13 07:33] LABS: Hematocrit 28.1 % (35.5-45.6); Hemoglobin 8.9 gm/dl (11.8-15.2); Mean Corpuscular HGB Conc 32 % (32-34); Mean Corpuscular Volume 88 fl (84-94); Red Blood Count 3.17 M/mm3 (3.65-5.03); Red Cell Distribution Width 19.8 % (13.2-15.2)
[2020-07-13 07:43] LABS: INR 1.13 (0.87-1.13)
[2020-07-13 07:45] LABS: Platelet Count 31 K/mm3 (140-440)
[2020-07-13 10:13] LABS: INR 1.14 (0.87-1.13)
[2020-07-13 10:14] LABS: Partial Thromboplastin Time 25.2 Sec. (24.2-36.6)
--- NOTE | 2020-07-13 10:28 | Hem/Onc Progress Note ---
Subjective Interval history: heme/onc f/u data review 64yo AA man with h/o stroke per notes now eval for confusion, abn labn testing, persistent anemia anticoag recently stopped because of anemia-->needed RBC transfusion (details unavailable) now persistent anemia and low plt count L big toe pain-->trial of steroids C/A/P CT neg for tumors DATA REVIEWED BELOW recent LDH 521 IMP: heme malignancy suspected, possibly acute leukemia stable blood counts not requiring frequent RBC or plt transfusions he will likely need intervention for heme malignancy, but not urgently PLAN/REC: request bone marrow biopsy to be done as inpatient consider discharge after BM biopsy-->I can plan televisit heme f/u no transfusions today Laboratory Last Values WBC 19.4 K/mm3 (4.5-11.0) H 07/13/20 06:28 Hgb 8.9 gm/dl (11.8-15.2) L 07/13/20 06:28 Hct 28.1 % (35.5-45.6) L 07/13/20 06:28 Plt Count 37 K/mm3 (140-440) L 07/13/20 09:04 Fibrinogen 328 mg/dl (211-480) 07/11/20 11:58 Lactate Dehydrogenase 521 units/L (91-180) H 07/11/20 11:58 Crossmatch See Detail 07/10/20 21:55 Objective - Constitutional Vitals: Last Vital Signs Temp 97.3 F L 07/12/20 21:04 Pulse 124 H 07/12/20 21:04 Resp 18 07/12/20 21:36 BP 173/88 07/12/20 21:04 Pulse Ox 97 07/12/20 21:04 - Labs Lab Results: Laboratory Results - last 24 hr 07/10/20 07/12/20 07/13/20 21:55 05:36 06:28 WBC 19.4 H RBC 3.17 L Hgb 8.9 L Hct 28.1 L MCV 88 MCH 28 MCHC 32 RDW 19.8 H Plt Count 35 L 31 L Pathologist Review Yes Hem Pathologist Commnt PT INR APTT 07/13/20 07/13/20 07/13/20 06:28 09:04 09:04 WBC RBC Hgb Hct MCV MCH MCHC RDW Plt Count 37 L Pathologist Review Hem Pathologist Commnt PT 14.4 14.5 INR 1.13 1.14 H APTT 25.2 Medications & Allergies - Medications Allergies/Adverse Reactions: Allergies No Known Allergies Allergy (Verified 07/11/20 01:41) Active Medications: Generic Name Dose Route Start Last Admin Trade Name Freq PRN Reason Stop Dose Admin Acetaminophen 650 mg 07/12/20 14:43 07/12/20 21:36 Acetaminophen 325 Mg Tab PO 650 mg Q6H PRN Administration Headache Al Hydrox/Mg Hydrox/Simethicone 15 ml 07/11/20 17:40 07/11/20 18:17 Alum-Mag Hydroxide-Simethicone 119-135-96vt/5ml Oral Liqd 30 Ml PO 15 ml Q4H PRN Administration Indigestion Amlodipine Besylate 5 mg 07/12/20 07:38 07/12/20 11:30 Amlodipine 5 Mg Tab PO Not Given QDAY CORDELIA Famotidine 20 mg 07/11/20 22:00 07/12/20 21:36 Famotidine 20 Mg Tab PO 20 mg BID CORDELIA Administration
[2020-07-13] MEDS ORDERED: allopurinoL 300 MG TAB PO SCH (11:00)
[2020-07-13 11:13] LABS: Hematocrit 27.4 % (35.5-45.6); Hemoglobin 8.7 gm/dl (11.8-15.2); Mean Corpuscular HGB Conc 32 % (32-34); Mean Corpuscular Volume 89 fl (84-94); Red Blood Count 3.08 M/mm3 (3.65-5.03)
[2020-07-13 11:22] LABS: Red Cell Distribution Width 20.2 % (13.2-15.2)
[2020-07-13 11:23] LABS: Platelet Count 28 K/mm3 (140-440)
[2020-07-13] MEDS: FAMOTIDINE 20 MG TAB PO SCH (12:25)
[2020-07-13] MEDS: amLODIPine 5 MG TAB PO SCH (12:26)
[2020-07-13 12:27] VITALS: BP 164/83
[2020-07-13 12:41] LABS: Total Cells Counted 100
[2020-07-13 12:43] LABS: Anisocytosis 1+; Ovalocytes Few; Schistocytes Rare; Tear Drop Cells Rare
[2020-07-13 12:44] LABS: Platelet Estimate Consistent w Auto; Poikilocytosis Rare
--- NOTE | 2020-07-13 13:47 | Progress Note ---
Subjective Date of service: 07/13/20 Interval history: History of present illness: History of presenting illness, patient is a 54-year-old male who was noted to have abnormal hemoglobin level sometime this month of June 2020 and had blood transfusion. Patient had hematology consult but never stayed to complete the consult and left the hospital where he was transfused AGAINST MEDICAL ADVICE. Patient had a syncopal episode about 2 days ago and was seen by the primary care doctor who advised patient to come to the hospital there was no history of chest pain, fever, dizziness, shortness of breath prior to the syncopal attack. Patient was evaluated in this emergency room and found to have low hemoglobin of 7.1 and low platelet count of 41,000. 07/12 patient is awake and alert and wants to go home. He offers no specific complaints and denies any dizziness, headache, fever or chills. I had a long discussion with patient's over the phone and at this time patient agrees to stay back for further work-up. Lab results reviewed. Hematology note reviewed. Appropriate tests including CT of the abdomen pelvis and chest and bone marrow biopsy ordered 07/13 patient is alert and wants to go home. He offers no specific complaints. 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 versus lymphoma Hematology consult note reviewed and appreciated Continue recommendations of hematology CT of the chest abdomen and pelvis results reviewed-no mass Awaiting bone marrow biopsy Leukocytosis-WBC count jumped to 20,000 today Likely secondary to steroid injection given yesterday Hypertension-borderline elevated Patient vital signs reviewed He is not on any medication at home Continue amlodipine Add low-dose metoprolol Objective - Constitutional Vitals: Vital Signs - 12hr 07/13/20 12:26 Pulse Rate 89 Blood Pressure 164/83 General appearance: Present: no acute distress, well-nourished - EENT Eyes: PERRL, EOM intact ENT: hearing intact, clear oral mucosa - Neck Neck: supple, normal ROM - Respiratory Respiratory effort: normal Respiratory: bilateral: CTA - Cardiovascular Rhythm: regular Heart Sounds: Present: S1 & S2 Extremities: No edema - Gastrointestinal General gastrointestinal: Present: soft, non-tender Rectal Exam: deferred - Integumentary Integumentary: clear - Neurologic Neurologic: no focal deficits, moves all extremities - Psychiatric Psychiatric: appropriate mood/affect - Labs CBC & Chem 7: 07/13/20 10:41 07/10/20 21:55 Labs: Abnormal lab results 07/12/20 07/13/20 07/13/20 Range/Units 05:36 06:28 09:04 WBC 19.4 H (4.5-11.0) K/mm3 RBC 3.17 L (3.65-5.03) M/mm3 Hgb 8.9 L (11.8-15.2) gm/dl Hct 28.1 L (35.5-45.6) % RDW 19.8 H (13.2-15.2) % Plt Count 35 L 31 L (140-440) K/mm3 Seg Neuts % (Manual) (40.0-70.0) % Nucleated RBC % (0.0-0.9) % Seg Neutrophils # Man (1.8-7.7) K/mm3 Monocytes # (Manual) (0.0-0.8) K/mm3 INR 1.14 H (0.87-1.13) Lactate Dehydrogenase (91-180) units/L 07/13/20 07/13/20 07/13/20 Range/Units 09:04 10:41 10:41 WBC 20.5 H (4.5-11.0) K/mm3 RBC 3.08 L (3.65-5.03) M/mm3 Hgb 8.7 L (11.8-15.2) gm/dl Hct 27.4 L (35.5-45.6) % RDW 20.2 H (13.2-15.2) % Plt Count 37 L 28 L (140-440) K/mm3 Seg Neuts % (Manual) 74.0 H (40.0-70.0) % Nucleated RBC % 13.0 H (0.0-0.9) % Seg Neutrophils # Man 15.2 H (1.8-7.7) K/mm3 Monocytes # (Manual) 1.0 H (0.0-0.8) K/mm3 INR (0.87-1.13) Lactate Dehydrogenase 737 H (91-180) units/L HEART Score - HEART Score Risk factors: 1-2 risk factors Troponin: Troponin T 0.022 ng/mL (0.00-0.029) 07/11/20 11:00 Troponin: < normal limit - Critical Actions Critical Actions: 0-3 pts:0.9-1.7%risk of adverse cardiac event.Candidate for discharge
[2020-07-13] MEDS ORDERED: METOPROLOL TARTRATE 25 MG TAB PO SCH (14:00)
--- NOTE | 2020-07-13 16:56 | Discharge Summary ---
Providers - Providers Date of Admission: 07/11/20 01:35 Date of discharge: 07/13/20 Attending physician: MANOHAR PANTOJA 07/11/20 08:25 Consult to Physician [CONS] Routine Comment: Consulting Provider: DARRELL PEARSON Physician Instructions: Reason For Exam: anemia /thrombocytopenia 07/12/20 10:19 Consult to Physician [CONS] Routine Comment: Consulting Provider: MANISH EUCEDA Physician Instructions: bone marrow biopsy Reason For Exam: suspected heme malignancy Hospitalization Condition: Stable Hospital course: History of present illness: patient is a 54-year-old male who was noted to have abnormal hemoglobin level sometime this month of June 2020 and had blood transfusion. Patient had hematology consult but never stayed to complete the consult and left the hospital where he was transfused AGAINST MEDICAL ADVICE. Patient had a syncopal episode about 2 days ago and was seen by the primary care doctor who advised patient to come to the hospital there was no history of chest pain, fever, dizziness, shortness of breath prior to the syncopal attack. Patient was evaluated in this emergency room and found to have low hemoglobin of 7.1 and low platelet count of 41,000. 07/12 patient is awake and alert and wants to go home. He offers no specific complaints and denies any dizziness, headache, fever or chills. I had a long discussion with patient's over the phone and at this time patient agrees to stay back for further work-up. Lab results reviewed. Hematology note reviewed. Appropriate tests including CT of the abdomen pelvis and chest and bone marrow biopsy ordered 07/13 patient is alert and wants to go home. He offers no specific complaints. 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 Suspected leukemia Time spent for discharge: 36 minutes Core Measure Documentation - Palliative Care Palliative Care/ Comfort Measures: Not Applicable - Core Measures Any of the following diagnoses?: none Exam - Constitutional Vitals: Temp Pulse Resp BP Pulse Ox 97.3 F L 89 18 164/83 97 07/12/20 21:04 07/13/20 12:26 07/12/20 21:36 07/13/20 12:26 07/12/20 21:04 General appearance: Present: no acute distress - EENT Eyes: Present: PERRL, EOM intact ENT: hearing intact - Neck Neck: Present: supple - Respiratory Respiratory effort: normal Respiratory: bilateral: CTA - Cardiovascular Rhythm: regular Heart Sounds: Present: S1 & S2 - Extremities Extremities: No edema - Abdominal General gastrointestinal: Present: soft, non-tender Male genitourinary: Present: deferred - Rectal Rectal Exam: deferred - Integumentary Integumentary: Present: clear - Musculoskeletal Musculoskeletal: strength equal bilaterally - Neurologic Neurologic: moves all extremities Plan Activity: other (Left AGAINST MEDICAL ADVICE) Weight Bearing Status: Full Weight Bearing Diet: regular, low fat, low cholesterol, low salt Additional Instructions: Follow-up with oncology hematology Dr.. Cardoso . Patient to call [phone] for appointment Follow up with: DR AALIYAH [Other] - 3-5 Days
[2020-07-13 22:08] LABS: Albumin 3.1 g/dL (3.8-4.8)
== END 2020-07-13 15:45 | disposition left against medical advice (07) ==
LOC: ED 21:29 → 3A 07-11 01:35
PROVIDERS: ADMIT Internal Medicine; ATTEND Internal Medicine
DX: D69.6 Thrombocytopenia, unspecified (principal); R55 Syncope and collapse; D64.9 Anemia, unspecified; I10 Essential (primary) hypertension; E11.9 Type 2 diabetes mellitus without complications; D72.829 Elevated white blood cell count, unspecified; R07.89 Other chest pain; Z86.73 Personal history of transient ischemic attack (TIA), and cerebral infarction without residual deficits; Z98.890 Other specified postprocedural states
CPT/HCPCS: 36415; 36430; 71260; 74177; 80053; 82550; 82553; 83615; 84165; 84484; 84550; 85007; 85014; 85018; 85025; 85027; 85049; 85384; 85610; 85730; 86850; 86900; 86901; 86920; 93306; 93880; 96374; 99291; G0378; J2930; J7050; P9016; Q9967

== ENCOUNTER 2020-07-14 11:39 | Emergency (ER) | payer SELFPAY ==
[2020-07-14 12:54] VITALS: BP 143/65
--- NOTE | 2020-07-14 13:06 | Event Note ---
ED Screening Note ED Screening Note: pt left AMA from the hospital pt was supposed to have a bone marrow biopsy pt has lower back pain and easy bruising no CP, SOB, abd pain, fever, n/v/d, fatigue, weakness, weight loss PMHx CVA, borderline DM, anemia no allergies to meds This initial assessment/diagnostic orders/clinical plan/treatment(s) is/are subject to change based on patients health status, clinical progression and re- assessment by fellow clinical providers in the ED. Further treatment and workup at subsequent clinical providers discretion. Patient/guardian urged not to elope from the ED as their condition may be serious if not clinically assessed and managed. Initial orders include: labs
[2020-07-14 14:33] LABS: Hematocrit 28.8 % (35.5-45.6); Hemoglobin 9.1 gm/dl (11.8-15.2); Mean Corpuscular HGB Conc 32 % (32-34); Mean Corpuscular Volume 89 fl (84-94); Red Blood Count 3.23 M/mm3 (3.65-5.03)
[2020-07-14 14:34] LABS: Platelet Count 37 K/mm3 (140-440); Red Cell Distribution Width 20.9 % (13.2-15.2)
[2020-07-14 14:42] LABS: INR 1.14 (0.87-1.13)
[2020-07-14 14:43] LABS: Partial Thromboplastin Time 25.9 Sec. (24.2-36.6)
[2020-07-14 14:52] LABS: Alanine Aminotransferase 15 units/L (7-56); Albumin 4.1 g/dL (3.9-5); Blood Urea Nitrogen 13 mg/dL (9-20); Calcium 8.9 mg/dL (8.4-10.2); Hemolysis Index 8
[2020-07-14 14:57] LABS: BUN/Creatinine Ratio 19
[2020-07-14 16:10] LABS: Anisocytosis 1+; Ovalocytes Few; Platelet Clumps Rare; Poikilocytosis Rare; Schistocytes Rare; Tear Drop Cells Few; Total Cells Counted 100
== END 2020-07-14 15:42 | disposition left against medical advice (07) ==
LOC: ED 11:39
DX: Z00.8 Encounter for other general examination (principal); Z53.21 Procedure and treatment not carried out due to patient leaving prior to being seen by health care provider
CPT/HCPCS: 36415; 80053; 82550; 83735; 85007; 85025; 85610; 85730; 86850; 86900; 86901